=== PATIENT | female | born 1980 | race Caucasian/White ===

== ENCOUNTER 2017-04-24 09:49 | Emergency (ER) | payer SELFPAY ==
[~2017-04-24] VITALS: Ht 170.2 cm; Wt 54.2 kg
[~2017-04-24 09:49] MED LIST: BACTRIM DS1 TAB OR; BACTRIM DS1 TAB PO; BENADRYL25 MG PO; EQ IBUPROFEN200 MG OR; FIORICE1 PO; FLEXERIL5 M1 PO; NAPROSYN375 MG PO; NAPROSYN500 MG OR; NAPROSYN500 MG PO; NO MEDS; ORTHO-NOVUM1 TAB PO; TYLENOL SIN1 OR; ULTRAM50 MG OR
[2017-04-24] MEDS ORDERED: DOXYCYCL HYC100 MG PO (10:08)
[2017-04-24] MEDS ORDERED: MEDDOSEPAK PO (10:08)
[2017-04-24 10:28] VITALS: BP 91/57
== END 2017-04-24 10:40 | disposition home or self-care (01) | DRG 918 ==
LOC: ED 09:49
DX: T63.481A Toxic effect of venom of other arthropod, accidental (unintentional), initial encounter (principal); F17.210 Nicotine dependence, cigarettes, uncomplicated

== ENCOUNTER 2017-07-09 09:31 | Emergency (ER) | payer SELFPAY ==
[~2017-07-09] VITALS: Ht 170.2 cm; Wt 50.0 kg
[~2017-07-09 09:31] MED LIST changes: +DOXYCYCL HYC100 MG PO; +MEDDOSEPAK PO
[2017-07-09] MEDS ORDERED: PREDNISONE50 MG PO (09:48)
[2017-07-09] MEDS ORDERED: AFRIN 12 HOUR0.05 % (09:48)
[2017-07-09] MEDS ORDERED: LEVAQUIN500 MG PO (09:48)
[2017-07-09 09:51] VITALS: BP 102/58
== END 2017-07-09 09:55 | disposition home or self-care (01) | DRG 153 ==
LOC: ED 09:31
DX: J01.00 Acute maxillary sinusitis, unspecified (principal); R09.81 Nasal congestion; J40 Bronchitis, not specified as acute or chronic; R05 Cough

== ENCOUNTER 2017-08-28 06:59 | Emergency (ER) | payer OTHER ==
[~2017-08-28] VITALS: Ht 170.2 cm; Wt 60.0 kg
[~2017-08-28 06:59] MED LIST changes: +AFRIN 12 HOUR0.05 %; +LEVAQUIN500 MG PO; +PREDNISONE50 MG PO
[2017-08-28] MEDS ORDERED: ULTRAM50 M1 PO (07:16)
[2017-08-28] MEDS ORDERED: MOTRIN800 MG PO (07:20)
[2017-08-28 07:42] VITALS: BP 110/70
== END 2017-08-28 07:45 | disposition home or self-care (01) | DRG 605 ==
LOC: ED 06:59
DX: S50.11XA Contusion of right forearm, initial encounter (principal); W55.12XA Struck by horse, initial encounter; Y93.K9 Activity, other involving animal care; Y92.71 Barn as the place of occurrence of the external cause

== ENCOUNTER 2018-01-26 16:14 | Emergency (ER) | payer OTHER ==
[~2018-01-26] VITALS: Ht 170.2 cm; Wt 55.6 kg
[~2018-01-26 16:14] MED LIST changes: +EPIPEN 2-P0.3 MG/0.3; +MOTRIN800 MG PO; +TRAZODONE100 MG PO; +ULTRAM50 M1 PO
[2018-01-26] MEDS ORDERED: ACULAR LS0.4 % OU (16:34)
[2018-01-26] MEDS ORDERED: ERYTHROMYCIN O3.5 GM OU (16:34)
[2018-01-26 17:00] VITALS: BP 95/65
== END 2018-01-26 17:00 | disposition home or self-care (01) | DRG 125 ==
LOC: ED 16:14
DX: H10.9 Unspecified conjunctivitis (principal); F17.210 Nicotine dependence, cigarettes, uncomplicated

== ENCOUNTER 2018-01-28 19:26 | Emergency (ER) | payer OTHER ==
[~2018-01-28] VITALS: Ht 170.2 cm; Wt 55.2 kg
[~2018-01-28 19:26] MED LIST changes: +ACULAR LS0.4 % OU; +ERYTHROMYCIN O3.5 GM OU
[2018-01-28 22:16] VITALS: BP 100/64
== END 2018-01-28 22:22 | disposition home or self-care (01) | DRG 552 ==
LOC: ED 19:26
DX: S16.1XXA Strain of muscle, fascia and tendon at neck level, initial encounter (principal); M25.552 Pain in left hip; M54.2 Cervicalgia; S39.012A Strain of muscle, fascia and tendon of lower back, initial encounter; V49.49XA Driver injured in collision with other motor vehicles in traffic accident, initial encounter; Y92.410 Unspecified street and highway as the place of occurrence of the external cause

== ENCOUNTER 2018-02-22 10:10 | Emergency (ER) | payer MEDICAID ==
[~2018-02-22] VITALS: Ht 170.2 cm; Wt 54.2 kg
[2018-02-22 11:10] LABS: HEMATOCRIT 37.6 % (37.0-47.0); HEMOGLOBIN 12.5 g/dl (12.0-16.0); IMMATURE GRANULOCYTES 0.4 % (0.0-1.0); MEAN CELL VOLUME 92.6 fL CALC (80.0-100.0); MEAN CORPUSCULAR HGB 30.8 pG CALC (26.0-32.0); MEAN CORPUSCULAR HGB CONC 33.2 g/L CALC (32.0-36.0); NEUT# 5.06 thou/uL (2.00-7.15); RED BLOOD COUNT 4.06 mill/uL (4.20-5.60); RED CELL DISTRI WIDTH 11.9 % (11.5-15.5)
[2018-02-22 11:19] LABS: ALBUMIN 4.1 g/dL (3.2-5.0); ALKALINE PHOSPHATASE 51 u/l (38-126); ANION GAP 15 (6-22 (CALC)); BILIRUBIN, TOTAL 0.5 mg/dL (0.0-1.4); BUN 5 mg/dL (7-17); BUN/CREATININE RATIO 8 (12-20 (CALC)); CARBON DIOXIDE 22 mmol/l (22-30); CHLORIDE 108 mmol/l (95-108); CREATININE 0.6 mg/dL (0.5-1.0); GFR > 60 ML/MIN (>=60 (CALC)); GFR FOR AFR.AMER. > 60 ML/MIN (>=60 (CALC)); LIPASE 72 u/l (23-300); POTASSIUM 3.3 mmol/l (3.5-5.1); SGOT/AST 26 u/l (14-36); SGPT/ALT 31 u/l (9-52); SODIUM 142 mmol/l (137-146); TOTAL PROTEIN 6.8 g/dL (6.3-8.2)
[2018-02-22 12:01] LABS: URINE BILIRUBIN - DIPSTICK NEGATIVE (NEGATIVE); URINE BLOOD DIPSTICK LARGE (NEGATIVE); URINE COLOR YELLOW; URINE GLUCOSE - DIPSTICK NEGATIVE (NEGATIVE); URINE KETONE NEGATIVE (NEGATIVE); URINE LEUK ESTERASE NEGATIVE (NEGATIVE); URINE NITRITE - DIPSTICK NEGATIVE (Negative); URINE PROTEIN - DIPSTICK NEGATIVE (NEG-TRACE); URINE SPECIFIC GRAVITY <=1.005; URINE UROBILINOGEN - DIPSTICK 0.2 E.U./dL (0.2)
[2018-02-22 12:04] LABS: URINE CLARITY SL CLOUDY
[2018-02-22 12:05] LABS: BARBITURATES NEGATIVE (NEGATIVE); COCAINE NEGATIVE (NEGATIVE); METHADONE NEGATIVE (NEGATIVE); OXCYCODONE NEGATIVE (NEGATIVE); TETRAHYDROCANNABIONOL NEGATIVE (NEGATIVE); TRICYLIC ANTIDEPRESSANTS NEGATIVE (NEGATIVE); URINE RBC 25-50 RBC/hpf (0-5)
[2018-02-22] MEDS ORDERED: ONDANSETRON4 MG PO (13:31)
[2018-02-22 13:40] VITALS: BP 102/66
== END 2018-02-22 13:40 | disposition home or self-care (01) | DRG 392 ==
LOC: ED 10:10
PROVIDERS: Family Medicine
DX: R10.32 Left lower quadrant pain (principal); R10.13 Epigastric pain; R55 Syncope and collapse; F17.210 Nicotine dependence, cigarettes, uncomplicated; G89.29 Other chronic pain; M54.9 Dorsalgia, unspecified; Z85.41 Personal history of malignant neoplasm of cervix uteri
CPT/HCPCS: Q9967

== ENCOUNTER 2019-02-13 07:57 | Emergency (ER) | payer OTHER ==
[~2019-02-13] VITALS: Ht 170.2 cm; Wt 53.0 kg
[~2019-02-13 07:57] MED LIST changes: +ONDANSETRON4 MG PO
[2019-02-13 08:43] LABS: HEMATOCRIT 40.6 % (37.0-47.0); HEMOGLOBIN 13.4 g/dl (12.0-16.0); IMMATURE GRANULOCYTES 0.3 % (0.0-5.0); MEAN CELL VOLUME 91.4 fL CALC (80.0-100.0); MEAN CORPUSCULAR HGB 30.2 pG CALC (26.0-32.0); NEUT# 3.95 thou/uL (2.00-7.15); RED BLOOD COUNT 4.44 mill/uL (4.20-5.60)
[2019-02-13 09:30] LABS: ALBUMIN 4.6 g/dL (3.2-5.0); ALKALINE PHOSPHATASE 61 u/l (38-126); ANION GAP 13 (6-22 (CALC)); BILIRUBIN, TOTAL 0.4 mg/dL (0.0-1.4); BUN 8 mg/dL (7-17); BUN/CREATININE RATIO 13 (12-20 (CALC)); CARBON DIOXIDE 23 mmol/l (22-30); CHLORIDE 109 mmol/l (95-108); CREATININE 0.6 mg/dL (0.5-1.0); GFR > 60 ML/MIN (>=60 (CALC)); GFR FOR AFR.AMER. > 60 ML/MIN (>=60 (CALC)); LIPASE 69 u/l (23-300); SGOT/AST 21 u/l (14-36); SODIUM 141 mmol/l (137-146)
[2019-02-13] MEDS ORDERED: ZOFRAN ODT4 MG PO (09:46)
[2019-02-13] MEDS ORDERED: MOTRIN400 MG PO (09:46)
[2019-02-13 09:50] VITALS: BP 101/54
== END 2019-02-13 10:10 | disposition home or self-care (01) ==
LOC: ED 07:57
PROVIDERS: Family Medicine
DX: S40.011A Contusion of right shoulder, initial encounter (principal); S20.211A Contusion of right front wall of thorax, initial encounter; S00.81XA Abrasion of other part of head, initial encounter; S16.1XXA Strain of muscle, fascia and tendon at neck level, initial encounter; S29.012A Strain of muscle and tendon of back wall of thorax, initial encounter; F17.200 Nicotine dependence, unspecified, uncomplicated; V80.010A Animal-rider injured by fall from or being thrown from horse in noncollision accident, initial encounter; Y93.52 Activity, horseback riding; Y92.009 Unspecified place in unspecified non-institutional (private) residence as the place of occurrence of the external cause

== ENCOUNTER 2019-09-09 16:46 | Emergency (ER) | payer OTHER ==
[~2019-09-09] VITALS: Ht 170.2 cm; Wt 50.0 kg
[~2019-09-09 16:46] MED LIST changes: +MOTRIN400 MG PO; +ZOFRAN ODT4 MG PO
[2019-09-09 17:40] LABS: HEMATOCRIT 38.9 % (37.0-47.0); HEMOGLOBIN 12.8 g/dl (12.0-16.0); IMMATURE GRANULOCYTES 0.2 % (0.0-5.0); MEAN CELL VOLUME 91.5 fL CALC (80.0-100.0); MEAN CORPUSCULAR HGB 30.1 pG CALC (26.0-32.0); MEAN CORPUSCULAR HGB CONC 32.9 g/L CALC (32.0-36.0); NEUT# 3.36 thou/uL (2.00-7.15); RED BLOOD COUNT 4.25 mill/uL (4.20-5.60); RED CELL DISTRI WIDTH 11.9 % (11.5-15.5)
[2019-09-09] MEDS ORDERED: PREDNISONE50 MG PO (17:50)
[2019-09-09] MEDS ORDERED: EPIPEN 2-P0.3 MG/0.3 IM (17:50)
[2019-09-09 17:51] LABS: BUN 7 mg/dL (7-17); BUN/CREATININE RATIO 12 (12-20 (CALC)); CHLORIDE 111 mmol/l (95-108); CREATININE 0.6 mg/dL (0.5-1.0); GFR > 60 ML/MIN (>=60 (CALC)); GFR FOR AFR.AMER. > 60 ML/MIN (>=60 (CALC)); POTASSIUM 3.4 mmol/l (3.5-5.1); SODIUM 139 mmol/l (137-146)
[2019-09-09 17:54] LABS: ANION GAP 14 (6-22 (CALC)); CARBON DIOXIDE 17 mmol/l (22-30)
[2019-09-09 18:05] VITALS: BP 101/68
== END 2019-09-09 18:09 | disposition home or self-care (01) ==
LOC: ED 16:46
PROVIDERS: Family Medicine
DX: T63.461A Toxic effect of venom of wasps, accidental (unintentional), initial encounter (principal)

== ENCOUNTER 2022-06-25 12:13 | Emergency (ER) | payer OTHER ==
[~2022-06-25] VITALS: Ht 170.2 cm; Wt 55.0 kg
[~2022-06-25 12:13] MED LIST changes: +EPIPEN 2-P0.3 MG/0.3 IM
[2022-06-25] MEDS ORDERED: VOLTAREN1%GEL TOP (14:08)
[2022-06-25 14:10] VITALS: BP 116/65
== END 2022-06-25 14:20 | disposition home or self-care (01) | DRG 552 ==
LOC: ED 12:13
DX: M54.50 Low back pain, unspecified (principal); E28.2 Polycystic ovarian syndrome; F17.210 Nicotine dependence, cigarettes, uncomplicated; Z85.41 Personal history of malignant neoplasm of cervix uteri

== ENCOUNTER 2023-05-16 09:39 | Emergency (ER) | payer OTHER ==
[~2023-05-16] VITALS: Ht 170.2 cm; Wt 58.2 kg
[~2023-05-16 09:39] MED LIST changes: +VOLTAREN1%GEL TOP
[2023-05-16] MEDS ORDERED: BACTRIM DS1 TAB PO (10:29)
[2023-05-16] MEDS ORDERED: OMNI-PAC300 MG PO (10:29)
[2023-05-16 10:41] VITALS: BP 128/77
== END 2023-05-16 10:54 | disposition home or self-care (01) | DRG 601 ==
LOC: ED 09:39
DX: N61.0 Mastitis without abscess (principal); F17.200 Nicotine dependence, unspecified, uncomplicated

== ENCOUNTER 2024-12-17 19:59 | Emergency (ER) | payer OTHER ==
[~2024-12-17] VITALS: Ht 170.2 cm; Wt 54.4 kg
[~2024-12-17 19:59] MED LIST changes: +OMNI-PAC300 MG PO
[2024-12-17] MEDS ORDERED: IBUPROFEN 800 MG/TAB PO ONE (20:30)
[2024-12-17] MEDS ORDERED: ACETAMINOPHEN 500 MG TAB PO ONE (20:30)
[2024-12-17 21:56] LABS: URINE BILIRUBIN - DIPSTICK Negative (NEGATIVE); URINE BLOOD DIPSTICK Negative (NEGATIVE); URINE GLUCOSE - DIPSTICK Negative (NEGATIVE); URINE KETONE Negative (NEGATIVE); URINE LEUK ESTERASE Negative (NEGATIVE); URINE NITRITE - DIPSTICK Negative (Negative); URINE PH 7.5 (4.5-8.0); URINE PROTEIN - DIPSTICK Negative (NEG-TRACE); URINE SPECIFIC GRAVITY 1.015; URINE UROBILINOGEN - DIPSTICK 0.2 E.U./dL (0.2)
[2024-12-17 22:01] LABS: URINE COLOR Yellow
[2024-12-17 22:20] VITALS: BP 108/71
[2024-12-18] MEDS ORDERED: ORPHENADRINE100 MG PO (13:42)
[2024-12-18] MEDS ORDERED: MOTRIN800 MG PO (13:42)
== END 2024-12-17 22:20 | disposition left against medical advice (07) | DRG 556 ==
LOC: ED 19:59
PROVIDERS: Internal Medicine
DX: M25.512 Pain in left shoulder (principal); M54.9 Dorsalgia, unspecified; F17.200 Nicotine dependence, unspecified, uncomplicated; Z53.29 Procedure and treatment not carried out because of patient's decision for other reasons; V49.40XA Driver injured in collision with unspecified motor vehicles in traffic accident, initial encounter

== ENCOUNTER 2024-12-18 11:11 | Emergency (ER) | payer OTHER ==
[~2024-12-18] VITALS: Ht 170.2 cm; Wt 57.0 kg
[2024-12-18] MEDS ORDERED: KETOROLAC TROMETHAMINE 30 MG/ML SDV IM ONE (12:30)
[2024-12-18] MEDS ORDERED: IBUPROFEN 600 MG/TAB PO ONE (12:50)
[2024-12-18] MEDS ORDERED: predniSONE 20 MG/TAB PO ONE (12:50)
[2024-12-18] MEDS ORDERED: MOTRIN800 MG PO (13:42)
[2024-12-18] MEDS ORDERED: ORPHENADRINE100 MG PO (13:42)
[2024-12-18 13:52] VITALS: BP 110/68
== END 2024-12-18 14:04 | disposition home or self-care (01) | DRG 556 ==
LOC: ED 11:11
DX: M25.512 Pain in left shoulder (principal); F17.200 Nicotine dependence, unspecified, uncomplicated; V49.40XA Driver injured in collision with unspecified motor vehicles in traffic accident, initial encounter
CPT/HCPCS: J1100